=== PATIENT | female | born 1975 | race Caucasian/White ===

== ENCOUNTER 2023-08-18 05:00 | Observation (INO) | payer SELFPAY ==
[2023-08-18] MEDS ORDERED: Morphine 4 MG/ML VIAL ONE (07:26)
[2023-08-18 10:21] LABS: #Monocytes 0.4 10x3/uL (0.0-1.1); #Neutrophils 2.7 10x3/uL (1.5-8.4); %Basophils 0.3 % (0.0-2.0); %Eosinophils 0.3 % (0.0-6.0); %Lymphocytes 18.1 % (18.0-47.0); %Neutrophils 70.8 % (40.0-75.0); Hematocrit 34.4 % (34.9-44.5); Hemoglobin 11.1 g/dL (12.0-15.5); Mean Corpuscular HGB CONC 32.3 g/dL (32.0-36.0); Mean Corpuscular Hemoglobin 26.6 pg (27.0-33.0); Mean Corpuscular Volume 82.3 fl (81.6-98.3); Mean Platelet Volume 8.8 fl (7.4-10.4); Platelet Count 391 10x3/uL (150-450); RBC Distribution Width 12.9 % (11.5-14.5); Red Blood Cell (RBC) Count 4.18 10x6/uL (3.90-5.03); White Blood Cell (WBC) Count 3.8 10x3/uL (3.5-10.5)
[2023-08-18 11:10] LABS: SARS-CoV-2 NAA Rapid Test Not Detected (NotDetected)
[2023-08-18 11:23] LABS: ALT (SGPT) 40 U/L (8-55); AST (SGOT) 93 U/L (5-34); Albumin 3.4 g/dL (3.5-5.0); Alkaline Phosphatase 213 U/L (40-110); Anion Gap 13 mmol/L (10-20); BUN (Urea Nitrogen) 16 mg/dL (7.0-18.7); Bilirubin, Total 0.3 mg/dL (0.2-1.2); Calc. Creatinine Clearance 0 mL/min (70-130); Carbon Dioxide 20 mmol/L (22-29); Chloride 104 mmol/L (98-107); Estimated GFR 89; Globulin 3.1 g/dL (2.4-3.5); Glucose 282 mg/dL (70-105); Potassium 3.7 mmol/L (3.5-5.1); Protein, Total 6.5 g/dL (6.0-8.3); Sodium 133 mmol/L (136-145)
[2023-08-18 11:39] VITALS: BP 142/90; TEMP 99.1
== END 2023-08-18 21:00 | disposition home or self-care (01) ==
LOC: CSHERS 05:00 → CSHTELE 07:22
PROVIDERS: ADMIT Emergency Medicine; ATTEND Emergency Medicine
DX: N83.202 Unspecified ovarian cyst, left side (principal); N83.201 Unspecified ovarian cyst, right side; R00.0 Tachycardia, unspecified; J10.1 Influenza due to other identified influenza virus with other respiratory manifestations; E11.9 Type 2 diabetes mellitus without complications; F17.210 Nicotine dependence, cigarettes, uncomplicated
CPT/HCPCS: 36415; 36416; 71045; 76856; 80053; 83605; 85025; 85379; 86140; 87040; 96374; J2270

== ENCOUNTER 2025-05-07 06:26 | Inpatient (IN) | payer OTHER ==
[2025-05-07 07:35] LABS: #Basophils 0.03 10x3/uL (0.0-0.2); #Eosinophils 0.09 10x3/uL (0.0-0.5); #Monocytes 0.61 10x3/uL (0.0-1.1); #Neutrophils 4.98 10x3/uL (1.5-8.4); %Basophils 0.3 % (0.0-2.0); %Eosinophils 1.0 % (0.0-6.0); %Lymphocytes 34.4 % (18.0-47.0); %Monocytes 7.0 % (0.0-10.0); %Neutrophils 57.1 % (40.0-75.0); Hematocrit 39.3 % (34.9-44.5); Hemoglobin 12.8 g/dL (12.0-15.5); Mean Corpuscular Hemoglobin 26.2 pg (27.0-33.0); Mean Corpuscular Volume 80.5 fL (81.6-98.3); Platelet Count 533 10x3/uL (150-450); Red Blood Cell (RBC) Count 4.88 10x6/uL (3.90-5.03); White Blood Cell (WBC) Count 8.73 10x3/uL (3.5-10.5)
[2025-05-07 07:51] LABS: ALT (SGPT) 11 U/L (Less than 34); AST (SGOT) 9 U/L (11-34); Albumin 3.7 g/dL (3.1-4.5); Alkaline Phosphatase 167 U/L (40-110); Anion Gap 18 mmol/L (10-20); BUN (Urea Nitrogen) 10 mg/dL (9.8-20.1); Bilirubin, Total 0.5 mg/dL (0.3-1.2); Calc. Creatinine Clearance 0 mL/min (70-130); Calcium 9.1 mg/dL (7.8-10.44); Carbon Dioxide 19 mmol/L (22-29); Chloride 96 mmol/L (98-107); Globulin 4.3 g/dL (2.4-3.5); Magnesium 2.1 mg/dL (1.6-2.6); Potassium 3.6 mmol/L (3.5-5.1); Sodium 129 mmol/L (136-145)
[2025-05-07 07:53] LABS: Glucose 636 mg/dL (70-105)
[2025-05-07 07:55] LABS: Troponin I Less than 0.010 ng/mL (< 0.028)
[2025-05-07 08:14] LABS: Glucose, Urine (Dipstick) >=1000 mg/dL (Negative); Leukocyte 500 (Negative); Protein, Urine (Dipstick) 30 mg/dl (Neg-Trace); Specific Gravity, Urine 1.010 (1.005-1.030)
[2025-05-07 08:22] LABS: Bacteria/HPF 3+ HPF (None Seen); CAUTI Indications for Culture Pelvic or flank pain; RBC/HPF 0-3 HPF (0-3); WBC/HPF Greater than 50 HPF (0-3)
[2025-05-07 08:23] LABS: Urine Culture Reflex Yes Yes
[2025-05-07] MEDS ORDERED: cefTRIAXone (ROCEPHIN) 1 GM VIAL ONE (08:32)
[2025-05-07] MEDS ORDERED: Glucagon 1 MG/ML KIT IM PRN (08:57)
[2025-05-07] MEDS ORDERED: Dextrose 50% Abboject 50 ML SYRINGE SLOW IVP PRN (08:57)
[2025-05-07] MEDS ORDERED: Bisacodyl 10 MG SUPP PR PRN (09:01)
[2025-05-07] MEDS ORDERED: Ondansetron PF 4 MG/2 ML Vial IVP PRN (09:01)
[2025-05-07] MEDS ORDERED: Calcium Carbonate 500 MG ChewTAB PO PRN (09:01)
[2025-05-07] MEDS ORDERED: Melatonin 3 MG TAB PO PRN (09:01)
[2025-05-07 09:59] VITALS: BMI 23.8
[2025-05-07] MEDS ORDERED: Ventolin HFA Inhaler 60 PUFF INHALER INH PRN (10:13)
[2025-05-07] MEDS: Senokot S 8.6-50 MG TAB PO PRN (10:46)
[2025-05-07] MEDS: Enoxaparin 40 MG (0.4 mL) SYRINGE SC SCH (10:46)
[2025-05-07] MEDS ORDERED: Benzocaine/Menthol 1 LOZ LOZ PO PRN (12:50)
[2025-05-07 14:31] LABS: Anion Gap 15 mmol/L (10-20); BUN (Urea Nitrogen) 12 mg/dL (9.8-20.1); Calc. Creatinine Clearance 66 mL/min (70-130); Calcium 8.2 mg/dL (7.8-10.44); Carbon Dioxide 20 mmol/L (22-29); Chloride 107 mmol/L (98-107); Glucose 181 mg/dL (70-105); Potassium 3.3 mmol/L (3.5-5.1); Sodium 139 mmol/L (136-145)
[2025-05-07] MEDS: Lantus 1000 UNITS/10 ML VIAL SC SCH (20:44)
[2025-05-08 04:16] LABS: #Basophils 0.03 10x3/uL (0.0-0.2); #Eosinophils 0.17 10x3/uL (0.0-0.5); #Monocytes 0.48 10x3/uL (0.0-1.1); #Neutrophils 4.94 10x3/uL (1.5-8.4); %Basophils 0.3 % (0.0-2.0); %Eosinophils 1.9 % (0.0-6.0); %Lymphocytes 37.1 % (18.0-47.0); %Monocytes 5.4 % (0.0-10.0); %Neutrophils 55.1 % (40.0-75.0); Hematocrit 34.6 % (34.9-44.5); Hemoglobin 11.3 g/dL (12.0-15.5); Mean Corpuscular Hemoglobin 26.2 pg (27.0-33.0); Mean Corpuscular Volume 80.1 fL (81.6-98.3); Platelet Count 474 10x3/uL (150-450); Red Blood Cell (RBC) Count 4.32 10x6/uL (3.90-5.03); White Blood Cell (WBC) Count 8.97 10x3/uL (3.5-10.5)
[2025-05-08 04:33] LABS: Iron 42 ug/dL (50-170); Iron Binding Capacity, Total 273 mcg/dL (265-497)
[2025-05-08 04:34] LABS: Anion Gap 11 mmol/L (10-20); BUN (Urea Nitrogen) 19 mg/dL (9.8-20.1); Calc. Creatinine Clearance 78 mL/min (70-130); Calcium 8.3 mg/dL (7.8-10.44); Carbon Dioxide 24 mmol/L (22-29); Chloride 106 mmol/L (98-107); Glucose 367 mg/dL (70-105); Iron 43 ug/dL (50-170); Iron Binding Capacity, Total 274 mcg/dL (265-497); Potassium 4.2 mmol/L (3.5-5.1); Sodium 137 mmol/L (136-145)
[2025-05-08 04:52] LABS: Ferritin 74.91 ng/mL (10-291)
[2025-05-08] MEDS ORDERED: Ibuprofen 200 MG TAB PO PRN (07:38)
[2025-05-08] MEDS: Lantus 1000 UNITS/10 ML VIAL SC SCH (08:30)
[2025-05-08] MEDS: Metoprolol Succinate XL 50 MG ER.TAB PO SCH (08:33)
[2025-05-08] MEDS: metFORMIN 500 MG TAB PO SCH (08:35)
[2025-05-08] MEDS: Enoxaparin 40 MG (0.4 mL) SYRINGE SC SCH (08:46)
[2025-05-08] MEDS: Amoxicillin/Potassium Clav 600 mg/5 ml Oral Suspension PO SCH (08:50)
[2025-05-08] MEDS: Lidocaine Viscous Sol 2% 15 ml UD Cup SSP SCH (08:52)
[2025-05-08] MEDS ORDERED: Amoxicillin/Potassium Clav 875 MG TAB PO SCH (09:00)
[2025-05-08] MEDS ORDERED: cefTRIAXone\\ROCEPHIN 1 GM in Sodium Chloride 0.9% 100 ML IVPB SCH (09:00)
[2025-05-08 14:22] LABS: Vitamin B12 774.0 pg/mL (211-911)
[2025-05-08] MEDS: Transdermal Patch Removal TOP SCH (17:27)
[2025-05-08] MEDS: Amoxicillin/Potassium Clav 400 mg/5 ml Oral Suspension PO SCH (21:08)
[2025-05-09 04:53] LABS: Anion Gap 11 mmol/L (10-20); BUN (Urea Nitrogen) 22 mg/dL (9.8-20.1); Calc. Creatinine Clearance 76 mL/min (70-130); Calcium 8.4 mg/dL (7.8-10.44); Carbon Dioxide 23 mmol/L (22-29); Chloride 109 mmol/L (98-107); Glucose 279 mg/dL (70-105); Potassium 3.8 mmol/L (3.5-5.1); Sodium 139 mmol/L (136-145)
[2025-05-09] MEDS: Acetaminophen 325 MG TAB PO PRN (21:32)
[2025-05-11 06:32] LABS: #Basophils 0.03 10x3/uL (0.0-0.2); #Eosinophils 0.26 10x3/uL (0.0-0.5); #Monocytes 0.58 10x3/uL (0.0-1.1); #Neutrophils 4.26 10x3/uL (1.5-8.4); %Basophils 0.3 % (0.0-2.0); %Eosinophils 2.8 % (0.0-6.0); %Lymphocytes 45.3 % (18.0-47.0); %Monocytes 6.2 % (0.0-10.0); %Neutrophils 45.1 % (40.0-75.0); Hematocrit 32.4 % (34.9-44.5); Hemoglobin 10.3 g/dL (12.0-15.5); Mean Corpuscular Hemoglobin 26.5 pg (27.0-33.0); Mean Corpuscular Volume 83.5 fL (81.6-98.3); Platelet Count 424 10x3/uL (150-450); Red Blood Cell (RBC) Count 3.88 10x6/uL (3.90-5.03); White Blood Cell (WBC) Count 9.43 10x3/uL (3.5-10.5)
[2025-05-11 06:49] LABS: ALT (SGPT) 15 U/L (Less than 34); AST (SGOT) 26 U/L (11-34); Albumin 2.7 g/dL (3.1-4.5); Alkaline Phosphatase 123 U/L (40-110); Anion Gap 9 mmol/L (10-20); BUN (Urea Nitrogen) 22 mg/dL (9.8-20.1); Bilirubin, Total 0.1 mg/dL (0.3-1.2); Calc. Creatinine Clearance 86 mL/min (70-130); Calcium 8.2 mg/dL (7.8-10.44); Carbon Dioxide 27 mmol/L (22-29); Chloride 106 mmol/L (98-107); Globulin 3.2 g/dL (2.4-3.5); Glucose 189 mg/dL (70-105); Potassium 3.6 mmol/L (3.5-5.1); Sodium 138 mmol/L (136-145)
[2025-05-11] MEDS: Cephalexin 500 MG CAP PO SCH (09:53)
[2025-05-12 04:57] LABS: #Basophils 0.03 10x3/uL (0.0-0.2); #Eosinophils 0.26 10x3/uL (0.0-0.5); #Monocytes 0.68 10x3/uL (0.0-1.1); #Neutrophils 4.12 10x3/uL (1.5-8.4); %Basophils 0.3 % (0.0-2.0); %Eosinophils 2.9 % (0.0-6.0); %Lymphocytes 43.1 % (18.0-47.0); %Monocytes 7.6 % (0.0-10.0); %Neutrophils 45.8 % (40.0-75.0); Hematocrit 35.4 % (34.9-44.5); Hemoglobin 11.0 g/dL (12.0-15.5); Mean Corpuscular Hemoglobin 25.9 pg (27.0-33.0); Mean Corpuscular Volume 83.5 fL (81.6-98.3); Platelet Count 441 10x3/uL (150-450); Red Blood Cell (RBC) Count 4.24 10x6/uL (3.90-5.03); White Blood Cell (WBC) Count 9.00 10x3/uL (3.5-10.5)
[2025-05-12 05:12] LABS: ALT (SGPT) 27 U/L (Less than 34); AST (SGOT) 37 U/L (11-34); Albumin 2.8 g/dL (3.1-4.5); Alkaline Phosphatase 178 U/L (40-110); Anion Gap 12 mmol/L (10-20); BUN (Urea Nitrogen) 21 mg/dL (9.8-20.1); Bilirubin, Total 0.1 mg/dL (0.3-1.2); Calc. Creatinine Clearance 73 mL/min (70-130); Calcium 8.8 mg/dL (7.8-10.44); Carbon Dioxide 27 mmol/L (22-29); Chloride 103 mmol/L (98-107); Globulin 3.5 g/dL (2.4-3.5); Glucose 218 mg/dL (70-105); Potassium 4.6 mmol/L (3.5-5.1); Sodium 137 mmol/L (136-145)
[2025-05-12 16:04] VITALS: TEMP 98.3
[2025-05-12 17:04] VITALS: BP 105/65
== END 2025-05-12 17:07 | disposition home or self-care (01) | DRG 638 ==
LOC: CSHERS 06:26 → CSHTELE 08:57 → OBSVTOIN 05-08 15:54
PROVIDERS: ADMIT Family Medicine; ATTEND Internal Medicine
DX: E11.65 Type 2 diabetes mellitus with hyperglycemia (principal); N39.0 Urinary tract infection, site not specified; E78.5 Hyperlipidemia, unspecified; I10 Essential (primary) hypertension; E11.40 Type 2 diabetes mellitus with diabetic neuropathy, unspecified; N81.10 Cystocele, unspecified; K02.9 Dental caries, unspecified; F17.210 Nicotine dependence, cigarettes, uncomplicated; K04.7 Periapical abscess without sinus; Z91.51 Personal history of suicidal behavior; Z91.148 Patient's other noncompliance with medication regimen for other reason; Z90.49 Acquired absence of other specified parts of digestive tract; Z98.51 Tubal ligation status; Z79.4 Long term (current) use of insulin; B95.61 Methicillin susceptible Staphylococcus aureus infection as the cause of diseases classified elsewhere; Z79.51 Long term (current) use of inhaled steroids; Z79.899 Other long term (current) drug therapy; Z79.84 Long term (current) use of oral hypoglycemic drugs
CPT/HCPCS: 36415; 36416; 71045; 72040; 80048; 80053; 81001; 82607; 82728; 83036; 83540; 83550; 83605; 83735; 84443; 84484; 85025; 87040; 87077; 87086; 87186; 93005; 93306; 96372; 96375; G0378; J0696; J1650; J1815; J2060